=== PATIENT | female | born 1945 | race Caucasian/White ===

== ENCOUNTER 2018-12-01 16:08 | Emergency (ER) | payer MEDICARE, OTHER ==
[~2018-12-01] VITALS: Wt 65.9 kg
[~2018-12-01 16:08] MED LIST: UNK BP MED
--- NOTE | 2018-12-01 16:23 | ERD ---
ER Documentation Chief Complaint Chief Complaint Gasping x 10 years HPI Very pleasant 73-year-old female history of hypertension who presents to the emergency room as a code green. The patient is visiting her who is in the intensive care unit and quite ill. Patient states that for 10 years she has had having episodes where she gasps. Patient states that there are moments just out of nowhere where she has to take a deep breath in. This usually lasts 1-2 seconds. She does state that these have been occurring more frequently over the last several months. Today within the ICU this happened again. She does describe generalized body weakness but no chest pressure no shortness of breath no pleuritic pain no fevers no chills. The patient states that at this time she feels at her baseline. ROS All systems reviewed and are negative except as per history of present illness. Medications Home Meds Reported Medications [Unk Bp Med] No Conflict Check 06/12/13 Allergies Allergies: Coded Allergies: No Known Drug Allergy (Verified Allergy, Mild, 06/12/13) acetaminophen (Verified Allergy, VOMITING, 06/12/13) hydrocodone bit (Verified Allergy, VOMITING, 06/12/13) PMhx/Soc History of Surgery: Yes (ruptured intestines, hernia removal, gallbladder removed) Anesthesia Reaction: No Hx Neurological Disorder: No Hx Respiratory Disorders: No Hx Cardiac Disorders: Yes (htn) Hx Psychiatric Problems: No Hx Alcohol Use: No Hx Substance Use: No Hx Tobacco Use: No FmHx Family History: No diabetes Physical Exam Vitals Vital Signs Date Temp Pulse Resp B/P (MAP) Pulse Ox O2 O2 Flow FiO2 Time Delivery Rate 12/01/18 Nasal 17:21 Cannula 12/01/18 97.6 55 22 181/67 98 16:19 (105) Physical Exam General: Well developed, well nourished, no acute distress Head: Normocephalic, atraumatic. Eyes: Pupils equally reactive, EOM intact ENT: Moist mucous membranes Neck: Supple, no lymphadenopathy Respiratory: Lungs clear bilaterally, no distress Cardiovascular: RRR, no murmurs, rubs, or gallops Abdominal: Soft, non-tender, non-distended, no peritoneal signs : Deferred MSK: No edema, no unilateral swelling, 5/5 strength Neurologic: Alert and oriented, moving all extremities, normal speech, no focal weakness, no cerebellar signs Skin: No rash Psych: Normal mood Result Diagram: 12/01/18 1640 12/01/18 1640 Results 24 hrs Laboratory Tests Test 12/01/18 16:40 White Blood Count 9.5 10^3/ul Red Blood Count 4.54 10^6/ul Hemoglobin 12.9 g/dl Hematocrit 39.8 % Mean Corpuscular Volume 87.7 fl Mean Corpuscular Hemoglobin 28.4 pg Mean Corpuscular Hemoglobin Concent 32.4 g/dl Red Cell Distribution Width 13.8 % Platelet Count 234 10^3/UL Mean Platelet Volume 9.3 fl Immature Granulocytes % 0.300 % Neutrophils % 54.9 % Lymphocytes % 36.5 % Monocytes % 6.9 % Eosinophils % 1.0 % Basophils % 0.4 % Nucleated Red Blood Cells % 0.0 /100WBC Immature Granulocytes # 0.030 10^3/ul Neutrophils # 5.2 10^3/ul Lymphocytes # 3.5 10^3/ul Monocytes # 0.7 10^3/ul Eosinophils # 0.1 10^3/ul Basophils # 0.0 10^3/ul Nucleated Red Blood Cells # 0.0 10^3/ul Prothrombin Time 13.1 Sec Prothrombin Time Ratio 1.0 INR International Normalized Ratio 0.98 Activated Partial Thromboplast Time 28.9 Sec Sodium Level 141 mmol/L Potassium Level 4.3 mmol/L Chloride Level 108 mmol/L Carbon Dioxide Level 23 mmol/L Anion Gap 10 Blood Urea Nitrogen 20 mg/dl Creatinine 0.59 mg/dl Est Glomerular Filtrat Rate mL/min mL/min Glucose Level 96 mg/dl Calcium Level 9.9 mg/dl Troponin I < 0.012 ng/ml Procedures/MDM EKG, MONITORS, & DIAGNOSTIC IMAGING: EKG: I reviewed and interpreted a 12-lead EKG. Rhythm: Normal sinus rhythm ST Changes: No contiguous ST segment elevations T waves: No contiguous T wave inversions Impression: No evidence of acute cardiac ischemia Chest x-ray: I reviewed and interpreted a 1 view of the chest Mediastinum: No enlargement Cardiac silhouette: No cardiomegaly Airspace: Clear lung liang bilaterally without evidence of pneumothorax Bones: No evidence of fracture LAB INTERPRETATION: I reviewed the laboratory testing and it shows no evidence of acute process MEDICAL DECISION MAKING: The patient presents with at least 10 years of symptoms that are described as gasping. The patient is otherwise well-appearing in the emergency room setting. The patient does have a history of hypertension was noted to be hypertensive during the code green. Given the subacute nature of these symptoms I do not believe the patient has an emergent medical condition. However, given her age I do believe the EKG laboratory testing and chest x-ray would be appropriate to rule out acute process. The patient's symptoms are likely exacerbated with recent social stressors as well as visiting her in the intensive care un it. Otherwise the patient is asymptomatic currently with nonfocal examination. I have very low pretest probability concern for acute coronary syndrome, pulmonary embolus, dissection, pneumonia, flash pulmonary edema or other serious etiology of her gasping for 10 years. ER COURSE: * The patient continues to be asymptomatic and well-appearing in the emergency room setting. * There are no signs or symptoms concerning for endorgan dysfunction or emergent medical condition. The patient is to follow-up with her primary care physician for the subacute process. CONSULTATION: None DISPOSITION PLAN: The patient does not have an identifiable emergent medical condition that warrants inpatient hospitalization at this time. The patient is deemed safe for discharge with outpatient follow-up. We discussed follow up with the patient's primary care doctor within 24 to 48 hours as needed. We also discussed return to the emergency room for worsening symptoms or worsening condition. Outpatient referral: None required Discharge Medications: None required Departure Diagnosis: Primary Impression: Generalized weakness Additional Impression: Gasping for breath Condition: Stable INDIGO CARRANZA MD Dec 01, 2018 16:23
[2018-12-01 18:02] VITALS: BP 129/71; PULSE 75; RESP 18
== END 2018-12-01 18:02 | disposition home or self-care (01) ==
LOC: E/R 16:08
DX: R53.1 Weakness (principal); R06.89 Other abnormalities of breathing; R06.02 Shortness of breath; I10 Essential (primary) hypertension
CPT/HCPCS: 36415; 71045; 80048; 84484; 85025; 85610; 85730; 93005

== ENCOUNTER 2019-04-11 12:09 | Emergency (ER) | payer MEDICARE, OTHER ==
[~2019-04-11] VITALS: Ht 149.9 cm; Wt 63.6 kg
[~2019-04-11 12:09] MED LIST changes: +ACET-141 PO; +AMLO-147 PO; +CEPH-443 PO; +DOCU-144 PO; +LEVO50TA7 PO; +LISI-471 PO; +NEBI10TA2 PO; +OMEP20CA16 PO
[2019-04-11 12:42] VITALS: Ht 149.9 cm; Wt 63.6 kg
[2019-04-11] MEDS ORDERED: morphine 2 MG INJ IV STA (13:02)
[2019-04-11] MEDS ORDERED: IOHEXOL 300MG/ML 150 ML BTL ONE (14:57)
[2019-04-11] MEDS ORDERED: SOD CHLORIDE 0.9% 100 ML ONE (14:57)
[2019-04-11] MEDS ORDERED: CEFTRIAXONE 1 GM/50 ML (PMX) 50 ML IVPB ONE (15:30)
[2019-04-11 16:39] VITALS: BP 129/73; PULSE 75; RESP 17
== END 2019-04-11 17:08 | disposition home or self-care (01) ==
LOC: E/R 12:09
DX: N30.00 Acute cystitis without hematuria (principal); I10 Essential (primary) hypertension; K91.840 Postprocedural hemorrhage of a digestive system organ or structure following a digestive system procedure
CPT/HCPCS: 36415; 71045; 74177; 80053; 81001; 83690; 85025; 96374; 96375; 99285; J0696; J2270; Q9967